=== PATIENT | female | born 1965 | race Caucasian/White ===

== ENCOUNTER → 2019-08-15 08:30 | Outpatient (BNVA) | payer BC, SELFPAY | PROVIDERS: Family Provider Family Medicine; PCP Family Medicine; Visit Provider Urology | DX: R39.15 Urgency of urination (principal); N30.20 Other chronic cystitis without hematuria; N39.3 Stress incontinence (female) (male) | CPT/HCPCS: 81001 ==

== ENCOUNTER → 2019-12-12 11:29 | Outpatient (BNVA) | payer BC, SELFPAY | PROVIDERS: Family Provider Family Medicine; PCP Nurse Practitioner Family; Visit Provider Nurse Practitioner Family | DX: N30.20 Other chronic cystitis without hematuria (principal); N39.3 Stress incontinence (female) (male) | CPT/HCPCS: 80053; 81001 ==

== ENCOUNTER 2020-07-02 07:20 | Outpatient (CLI) | payer OTHER, SELFPAY ==
--- NOTE | 2020-07-02 07:27 | MM_ITS ---
WS: [id number] BILATERAL SCREENING DIGITAL MAMMOGRAM WITH CAD HISTORY: SCREENING COMPARISON: 09/20/2018, 08/17/2017 and 10/08/2015 Bilateral CC and MLO views submitted. Computer aided detection analyzed. Breast composition: There are scattered areas of fibroglandular density. No suspicious masses, microc alcifications or architectural distortion. Asymmetries in the anterior to mid RIGHT breast have been present since 2016. MM/[id number] IMPRESSION: BI-RADS: 2-Benign FOLLOW UP: 1 Year Follow-up
== END 2020-07-02 07:21 | disposition home or self-care (01) ==
LOC: RADSHAW 07:26
PROVIDERS: PCP Nurse Practitioner Family; Visit Provider Nurse Practitioner Family
DX: Z12.31 Encounter for screening mammogram for malignant neoplasm of breast (principal)
CPT/HCPCS: 77067

== ENCOUNTER → 2024-03-10 14:33 | Outpatient (BNVA) | payer BC, SELFPAY | PROVIDERS: PCP Nurse Practitioner Family; Visit Provider Nurse Practitioner Family | DX: J06.9 Acute upper respiratory infection, unspecified (principal) | CPT/HCPCS: 87426 ==

== ENCOUNTER 2025-01-21 07:21 | Emergency (ER) | payer BC, SELFPAY ==
--- OUTSIDE RECORDS SUMMARY | 2025-01-21 07:28 | XMS_ITS | Data Portability ---
Author Organization GABRIELA Funes [facility], [place], [facility] Address [address] [facility] [address] [place] [address] Assessment Encounter Date Assessment Date Assessment LastModified by Organization Details LastModified Time 04/15/2023 04/15/2023 Patient reports her insurance does not cover mammogram or colonoscopy. Information provided regarding local programs to help pay for mammogram. She has also been directed to the [facility] for information regarding [employer] program. Patient is recorded at high risk for sleep apnea however she has tried to get a sleep study before and her insurance would not cover the testing. Currently taking EMT classes. 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 Typically follows with [facility] for her eyes. Not available 04/06/2024 12:16:37 10/05/2024 10/05/2024 Patient here today for a check-up. Overall she has been doing okay. She has been working at [employer]. She is currently going through a divorce. She will work on scheduling an eye exam. Not available 10/05/2024 10:03:10 11/29/2024 11/29/2024 Patient here today because she has been having troubles with pain in her legs and swelling/redne ss on the front area of her right lower leg. She has a lump she found in the shower in her right breast she is concerned about. She has not had a mammogram for some time. Will schedule. Not available 11/30/2024 12:56:04 01/05/2025 01/05/2025 Patient here today because she is having troubles again with possible cellulitis in her lower legs. They are both red and her left one is tender to touch. Not available 01/09/2025 14:06:12 Plan of Treatment Reminders Order Date Submit Date Provider Last Modified By Organization Details Last Modified Time Details Appointments OFFICE VISIT 2025 09:00A GENESIS [place] Not available Not available Not available Lab hemoglobi n A1C/hemog lobin total, QN, blood 2024 025 [facility], [address], [place], [address], 10/05/2024 10:56:03 CMP, serum or plasma 2024 025 [facility], [address], [place], [address], 10/05/2024 12:11:03 CBC 2024 025 [facility], [address], [place], [address], 10/05/2024 10:55:55 microalbu min/creat inine, mass ratio, urine 2024 025 [facility], [address] [facility] [address] [place], [address], 04/07/2024 15:23:10 hemoglobi n A1C/hemog lobin total, QN, blood 2024 025 [facility], [address], [place], [address], 04/06/2024 12:50:29 CMP, serum or plasma 2024 025 RAD[facility], [address], [address], [place], [address], 04/06/2024 13:13:38 lipid panel, blood 2024 025 [facility], [address], [address] , [place], [address], 04/06/2024 13:13:41 CBC 2024 025 [facility], [address], [place], [address], 04/06/2024 12:44:51 TSH, serum or plasma 2024 025 [email or web address] [facility], [address] [facility] [address], [address], [place], [address], 04/13/2024 10:33:52 microalbu min/creat inine, mass ratio, urine 2023 024 CARE[facility], [address] [place] [address], [facility] [address] [place], [address], 04/16/2023 14:06:56 HbA1c (hemoglob in A1c), blood 2023 024 [facility] ([facility]), [address] [place], [address], 04/15/2023 13:01:57 CMP, serum or plasma 2023 024 [facility], [address], [address], [place], [address], 04/15/2023 12:18:54 CBC 2023 024 [facility], [address], [address], [place], [address], 04/15/2023 11:43:08 lipid panel, blood 2023 024 RAD[facility], [address], [address], [place], [address], 04/15/2023 12:18:56 Referral vascular surgeon referral 2024 [email or web address] [facility], [address], [place], [address], 01/16/2025 11:47:27 primary care provider referral 2024 025 [email or web address] Not available 10/05/2024 16:19:35 general surgeon referral 2024 025 [email or web address] Lopez Hines MD, [address], [place], [address], 04/18/2024 16:32:12 Procedures None recorded. Surgeries None recorded. Imaging MAMMO, screening , digital, bilateral 2024 025 [facility], [address], [place], [address], 04/25/2024 09:18:13 Medication Orders cephalexi n 500 mg capsule 2024 025 [facility] [place], [facility] [place], [address], 01/19/2025 05:01:56 doxycycli ne hyclate 100 mg capsule 2024 025 [facility], [facility] [place], [address], 12/13/2024 05:01:45 glipizide 10 mg tablet 2024 025 [facility], [address] [place] [address], [address], 09/19/2024 09:32:22 metformin ER 750 mg tablet,ex tended release 24 hr 2024 025 [facility], [address] [place] [address], [address], 11/16/2024 17:40:02 pioglitaz one 15 mg tablet 2024 025 [facility], [address] [place] [address], [address], 10/12/2024 10:00:27 amoxicill in 875 mg-potass ium clavulana te 125 mg tablet [address], [address], 10/03/2024 14:24:09 atorvasta tin 10 mg tablet 2024 025 [facility], [address] [place] [address], [address], 09/19/2024 09:32:22 lisinopri l 20 mg-hydroc hlorothia zide 25 mg tablet 2024 025 [facility], [address] [place] [address], [address], 11/16/2024 17:39:59 gabapenti n 300 mg capsule 2024 025 [facility], [address] [place] [address], [address], 09/15/2024 10:26:33 Rozerem 8 mg tablet 2023 025 [facility], [address] [place] [address], [address], 04/07/2024 09:04:17 glipizide 10 mg tablet [address], [address], 11/05/2023 15:20:27 metformin ER 750 mg tablet,ex tended release 24 hr [address], [address], 11/05/2023 15:20:28 pioglitaz one 15 mg tablet [address], [address], 11/05/2023 15:20:27 lisinopri l 20 mg-hydroc hlorothia zide 25 mg tablet [address], [address], 11/05/2023 15:20:26 atorvasta tin 10 mg tablet [address], [address], 11/05/2023 15:20:25 gabapenti n 300 mg capsule [address], [address], 11/05/2023 15:20:25 Patient TargetsNo targets recorded. Patient Instructions Encounter Date Encounter Id Patient Instructions Last Modified By Organization Details Last Modified Time 04/15/2023 [id number] Call or return for questions or concerns. Not available 04/15/2023 10:30:40 04/06/2024 [id number] Call or return for questions or concerns. Not available 04/06/2024 12:10:28 10/05/2024 [id number] Call or return for questions or concerns. Not available 10/05/2024 10:05:35 11/29/2024 [id number] Call or return for questions or concerns. Not available 11/30/2024 12:56:09 01/05/2025 [id number] Call or return for questions or concerns. Not available 01/09/2025 14:06:19 Reason for Referral General Surgeon Referral for Screening for malignant neoplasm of colon Referring Physician: Cally Mcgowan [facility], Encounter Date: 04/06/2024 Primary Care Provider Referr al for Screening for malignant neoplasm of colon Referring Physician: Cally Mcgowan [facility], Encounter Date: 10/05/2024 Vascular Surgeon Referral fo r Peripheral vascular disease Referring Physician: Cally Mcgowan [facility], Encounter Date: 01/05/2025 Results Created Date Observation Date Name Description Value Unit Range Abnormal Flag Note LastModifiedBy Organization Detail LastModifiedTime 04/15/19 24 04/15/2023 CBC WBC 5.1 x10 4.0-10 .5 Not Available [facility] [address] [facility] [address], [place], [address], 04/15/2023 11:43:08 04/15/19 24 04/15/2023 CBC RBC 4.70 x10 3.50-5 .50 Not Available [facility] [address] [facility] [address], [place], [address], 04/15/2023 11:43:08 04/15/19 24 04/15/2023 CBC HGB 14.2 g/dL 12.0-1 6.0 Not Available [facility] [address] [facility] [address], [place], [address], 04/15/2023 11:43:08 04/15/19 24 04/15/2023 CBC HCT 41.6 % 37.0-4 7.0 Not Available [facility] [address] [facility] [address], [place], [address], 04/15/2023 11:43:08 04/15/19 24 04/15/2023 CBC MCV 88.5 fL 80.0-9 9.9 Not Available [facility] [address] [facility] [address], [place], [address], 04/15/2023 11:43:08 04/15/19 24 04/15/2023 CBC MCH 30.2 pg 27.0-3 2.0 Not Available [facility] [address] [facility] [address], [place], [address], 04/15/2023 11:43:08 04/15/19 24 04/15/2023 CBC MCHC 34.2 g/dL 32.0-3 6.0 Not Available [facility] [address] [facility], [place], [address], 04/15/2023 11:43:08 04/15/19 24 04/15/2023 CBC RDW 14.3 % 11.5-1 4.5 Not Available [facility] [address] [facility], [place], [address], 04/15/2023 11:43:08 04/15/19 24 04/15/2023 CBC plt 177.0 x10 140.0- 451.0 Not Available [facility] [address] [facility] [address], [place], [address], 04/15/2023 11:43:08 04/15/19 24 04/15/2023 CBC lymphocytes % 29.0 % 20.0-5 0.0 Not Available [facility] [address] [facility] [address], [place], [address], 04/15/2023 11:43:08 04/15/19 24 04/15/2023 CBC granulcytes % 52.8 % 30.0-7 0.0 Not Available [facility] [address] [address], [place], [address], 04/15/2023 11:43:08 04/15/19 24 04/15/2023 CBC monocytes % 9.6 % 2.0-10 .0 Not Available [facility] [address] [address], [place], [address], 04/15/2023 11:43:08 04/15/19 24 04/15/2023 CBC granulcytes# 2.7 x10 Not Altagracia ilable [facility] [address] [address], [place], [address], 04/15/2023 11:43:08 04/15/19 24 04/15/2023 CBC lymphocytes # 1.5 x10 Not Available [facility] [address] [address], [place], [address], 04/15/2023 11:43:08 04/15/19 24 04/15/2023 CBC monocytes # 0.5 x10 Not Avai lable [facility] [address] [address], [place], [address], 04/15/2023 11:43:08 04/15/19 24 04/15/2023 CMP (FEMA LE) glucose 121.0 mg/dL 60.0-9 9.0 high Not Available [facility] [address] [address], [place], [address], 04/15/2023 12:18:54 04/15/1904/15/2023 CMP (FEMA LE) BUN (blood urea nitrogen) 22.0 mg/dL 10.0-2 6.0 Not Available [facility] [address], [address], 04/15/2023 12:18:54 04/15/19 24 04/15/2023 CMP (FEMA LE) creatinine (serum) 0.7 mg/dL 0.4-1. 5 Not Available [facility] [address], [place], [address], 04/15/2023 12:18:54 04/15/19 24 04/15/2023 CMP (FEMA LE) BUN/creatini ne ratio 30.14 ratio Not Available [facility] [address] [facility] [address], [place], [address], 04/15/2023 12:18:54 04/15/19 24 04/15/2023 CMP (FEMA LE) eGFR calculated 87.0 Not Available [facility] [address] [address], [place], [address], 04/15/2023 12:18:54 04/15/19 24 04/15/2023 CMP (FEMA LE) total protein 7.3 g/dL 6.0-8. 5 Not Available [facility] [address] [address], [place], [address], 04/15/2023 12:18:54 04/15/19 24 04/15/2023 CMP (FEMA LE) total bilirubin 0.7 mg/dL 0.2-1. 3 Not Available [facility] [address] [address], [place], [address], 04/15/2023 12:18:54 04/15/19 24 04/15/2023 CMP (FEMA LE) albumin 4.3 g/dL 3.5-5. 5 Not Available [facility] [address], [place], [address], 04/15/2023 12:18:54 04/15/19 24 04/15/2023 CMP (FEMA LE) globulin 3.0 calc Not Available [facility] [address], [place], [address], 04/15/2023 12:18:54 04/15/19 24 04/15/2023 CMP (FEMA LE) AST (SGOT) 27.0 U/L 0.0-46 .0 Not Available [facility] [address], [place], [address], 04/15/2023 12:18:54 04/15/19 24 04/15/2023 CMP (FEMA LE) altv (SGPT) 34.0 U/L 13.0-6 9.0 normal Not Available [facility] [address], [place], [address], 04/15/2023 12:18:54 04/15/19 24 04/15/2023 CMP (FEMA LE) A/G ratio 1.4 ratio Not Available [facility] [address], [place], [address], 04/15/2023 12:18:54 04/15/19 24 04/15/2023 CMP (FEMA LE) ALP phos 82.0 U/L 30.0-1 40.0 normal Not Available [facility] [address], [place], [address], 04/15/2023 12:18:54 04/15/19 24 04/15/2023 CMP (FEMA LE) calcium 9.7 mg/dL 8.4-10 .5 Not Available [facility] [address] [address], [place], [address], 04/15/2023 12:18:54 04/15/19 24 04/15/2023 CMP (FEMA LE) sodium 141.0 mmol/ L 136.0- 145.0 Not Available [facility] [address] [address], [place], [address], 04/15/2023 12:18:54 04/15/19 24 04/15/2023 CMP (FEMA LE) potassium 4.1 mmol/ L 3.5-5. 1 Not Available [facility] [address] [facility] [address], [place], [address], 04/15/2023 12:18:54 04/15/19 24 04/15/2023 CMP (FEMA LE) chloride 103.0 mmol/ L 98.0-1 10.0 normal Not Available [facility] [address] [facility], [place], [address], 04/15/2023 12:18:54 04/15/19 24 04/15/2023 CMP (FEMA LE) C02 35.0 mmol/ L 22.0-3 1.0 high Not Available [facility] [address] [facility], [place], [address], 04/15/2023 12:18:54 04/15/19 24 04/15/2023 CMP (FEMA LE) anion gap 3.0 calc Not Available [facility] [address] [facility], [place], [address], 04/15/2023 12:18:54 04/15/19 24 04/15/2023 CMP (FEMA LE) osmolality 295.4 calc Not Available [facility] [address] [facility], [place], [address], 04/15/2023 12:18:54 04/15/19 24 04/15/2023 LIPID PROFI LE (FEMA LE) cholesterol 160.0 mg/dL 0.0-20 0.0 Not Available [facility] [address] [facility], [place], [address], 04/15/2023 12:18:56 04/15/19 24 04/15/2023 LIPID PROFI LE (FEMA LE) trig 310.0 mg/dL 0.0-15 0.0 high Not Available [facility] [address] [address], [place], [address], 04/15/2023 12:18:56 04/15/19 24 04/15/2023 LIPID PROFI LE (FEMA LE) HDL - direct 33.0 mg/dL >40.0 low Not Available [facility] [address], [place], [address], 04/15/2023 12:18:56 04/15/19 24 04/15/2023 LIPID PROFI LE (FEMA LE) VLDL - direct 62.0 mg/dL Not Available [facility] [address] [facility] [address], [place], [address], 04/15/2023 12:18:56 04/15/19 24 04/15/2023 LIPID PROFI LE (FEMA LE) LDL - direct 65.0 mg/dL 0.0-13 0.0 Not Available [facility] [address] [address], [place], [address], 04/15/2023 12:18:56 04/15/19 24 04/16/2023 ALBUM IN, RANDO M URINE W/CRE ATINI NE creatinine, random urine 111 mg/dL 20-275 normal Not Available [facility] [address] [place], [address], 04/16/2023 14:06:56 04/15/19 24 04/16/2023 ALBUM IN, RANDO M URINE W/CRE ATINI NE albumin, urine 1.8 mg/dL see note: normal Refer ence Range : Refer ence Range Not estab lishe d Not Available [facility] [address] [place], [address], 04/16/2023 14:06:56 04/15/19 24 04/16/2023 ALBUM IN, RANDO M URINE W/CRE ATINI NE albumin/crea tinine ratio, random urine 16 mcg/m g_cre at <30 normal The ADA defin es abnor malit ies in album in excre tion as follo ws: Album inuri a Categ ory Resul t (mcg/ mg creat inine ) Sofia l to Mildl y incre ased <30 Moder ately incre ased 30-29 9 Sever lisa incre ased > OR = 300 The ADA recom mends that at least two of three speci mens colle cted withi n a 3-6 month perio d be abnor mal befor e consi amparo g a patie nt to be withi n a diagn ostic categ ory. Not Available [facility] [address] [place], [address], 04/16/2023 14:06:56 04/15/19 24 04/15/2023 HbA1c (hemo globi n A1c), blood HbA1c 5.8 Not Available [facility] [address] [place], [address], 04/15/2023 10:20:24 04/06/19 25 04/06/2024 CBC WBC 3.4 x10 4.0-10 .5 low Not Available [facility] [address] [facility] [address], [address], 04/06/2024 12:44:51 04/06/19 25 04/06/2024 CBC RBC 4.35 x10 3.50-5 .50 Not Available [facility] [address] [facility] [address], [place], [address], 04/06/2024 12:44:51 04/06/19 25 04/06/2024 CBC HGB 13.4 g/dL 12.0-1 6.0 Not Available [facility] [address] [facility] [address], [address], 04/06/2024 12:44:51 04/06/19 25 04/06/2024 CBC HCT 37.8 % 37.0-4 7.0 Not Available [facility] [address] [facility] [address], [place], [address], 04/06/2024 12:44:51 04/06/19 25 04/06/2024 CBC MCV 87.0 fL 80.0-9 9.9 Not Available [facility] [address] [facility] [address], [place], [address], 04/06/2024 12:44:51 04/06/1904/06/2024 CBC MCH 30.9 pg 27.0-3 2.0 Not Available [facility] [address] [facility] [address], [place], [address], 04/06/2024 12:44:51 04/06/19 25 04/06/2024 CBC MCHC 35.6 g/dL 32.0-3 6.0 Not Available [facility] [address] [facility] [address], [place], [address], 04/06/2024 12:44:51 04/06/19 25 04/06/2024 CBC RDW 14.4 % 11.5-1 4.5 Not Available [facility] [address] [facility] [address], [place], [address], 04/06/2024 12:44:51 04/06/19 25 04/06/2024 CBC plt 154.7 x10 140.0- 451.0 Not Available [facility] [address] [facility] [address], [place], [address], 04/06/2024 12:44:51 04/06/19 25 04/06/2024 CBC lymphocytes % 26.7 % 20.0-5 0.0 Not Available [facility] [address] [facility] [address], [place], [address], 04/06/2024 12:44:51 04/06/19 25 04/06/2024 CBC granulcytes % 55.0 % 30.0-7 0.0 Not Available [facility] [address] [facility] [address], [place], [address], 04/06/2024 12:44:51 04/06/19 25 04/06/2024 CBC monocytes % 11.9 % 2.0-16 .0 Not Available [facility] [address] [facility], [place], [address], 04/06/2024 12:44:51 04/06/19 25 04/06/2024 CBC granulcytes# 1.8 x10 Not Altagracia ilable [facility] [address] [address], [place], [address], 04/06/2024 12:44:51 04/06/19 25 04/06/2024 CBC lymphocytes # 0.9 x10 Not Available [facility] [address] [facility], [place], [address], 04/06/2024 12:44:51 04/06/19 25 04/06/2024 CBC monocytes # 0.4 x10 Not Avai lable [facility] [address] [facility], [place], [address], 04/06/2024 12:44:51 04/06/19 25 04/06/2024 HBA1C hemaglobin A1C 5.9 4.2-6. 5 Not Available [facility] [address] [facility], [place], [address], 04/06/2024 12:50:29 04/06/19 25 04/06/2024 CMP (FEMA LE) glucose 121.0 mg/dL 60.0-9 9.0 high Not Available [facility] [address] [facility], [place], [address], 04/06/2024 13:13:38 04/06/19 25 04/06/2024 CMP (FEMA LE) BUN (blood urea nitrogen) 24.0 mg/dL 10.0-2 6.0 Not Available [facility] [address] [facility] [address] [address], [place], [address], 04/06/2024 13:13:38 04/06/19 25 04/06/2024 CMP (FEMA LE) creatinine (serum) 0.8 mg/dL 0.4-1. 5 Not Available [facility] [address] [facility] [address] [address], [place], [address], 04/06/2024 13:13:38 04/06/19 25 04/06/2024 CMP (FEMA LE) BUN/creatini ne ratio 30.00 ratio Not Available [facility] [address] [facility] [address] [address], [place], [address], 04/06/2024 13:13:38 04/06/19 25 04/06/2024 CMP (FEMA LE) eGFR calculated 78.0 Not Available [facility] [address] [address], [place], [address], 04/06/2024 13:13:38 04/06/19 25 04/06/2024 CMP (FEMA LE) total protein 8.2 g/dL 6.0-8. 5 Not Available [facility] [address] [address], [place], [address], 04/06/2024 13:13:38 04/06/19 25 04/06/2024 CMP (FEMA LE) total bilirubin 0.8 mg/dL 0.2-1. 3 Not Available [facility] [address] [facility] [address] [address], [place], [address], 04/06/2024 13:13:38 04/06/19 25 04/06/2024 CMP (FEMA LE) albumin 4.6 g/dL 3.5-5. 5 Not Available [facility] [address] [facility], [place], [address], 04/06/2024 13:13:38 04/06/19 25 04/06/2024 CMP (FEMA LE) globulin 3.6 calc Not Available [facility] [address], [place], [address], 04/06/2024 13:13:38 04/06/19 25 04/06/2024 CMP (FEMA LE) AST (SGOT) 27.0 U/L 0.0-46 .0 Not Available [facility] [address], [place], [address], 04/06/2024 13:13:38 04/06/19 25 04/06/2024 CMP (FEMA LE) altv (SGPT) 31.0 U/L 13.0-6 9.0 normal Not Available [facility] [address] [facility], [place], [address], 04/06/2024 13:13:38 04/06/19 25 04/06/2024 CMP (FEMA LE) A/G ratio 1.3 ratio Not Available [facility] [address], [place], [address], 04/06/2024 13:13:38 04/06/19 25 04/06/2024 CMP (FEMA LE) ALP phos 87.0 U/L 30.0-1 40.0 normal Not Available [facility] [address] [facility], [place], [address], 04/06/2024 13:13:38 04/06/19 25 04/06/2024 CMP (FEMA LE) calcium 9.7 mg/dL 8.4-10 .5 Not Available [facility] [address] [facility] [address], [place], [address], 04/06/2024 13:13:38 04/06/19 25 04/06/2024 CMP (FEMA LE) sodium 137.0 mmol/ L 136.0- 145.0 Not Available [facility] [address] [facility] [address], [place], [address], 04/06/2024 13:13:38 04/06/19 25 04/06/2024 CMP (FEMA LE) potassium 3.9 mmol/ L 3.5-5. 1 Not Available [facility] [address] [address], [place], [address], 04/06/2024 13:13:38 04/06/19 25 04/06/2024 CMP (FEMA LE) chloride 103.0 mmol/ L 98.0-1 10.0 normal Not Available [facility] [address] [facility] [address], [place], [address], 04/06/2024 13:13:38 04/06/19 25 04/06/2024 CMP (FEMA LE) C02 32.0 mmol/ L 22.0-3 1.0 high Not Available [facility] [address] [address], [place], [address], 04/06/2024 13:13:38 04/06/19 25 04/06/2024 CMP (FEMA LE) anion gap 2.0 calc Not Available [facility] [address] [address], [place], [address], 04/06/2024 13:13:38 04/06/19 25 04/06/2024 CMP (FEMA LE) osmolality 288.1 calc Not Available [facility] [address], [place], [address], 04/06/2024 13:13:38 04/06/19 25 04/06/2024 LIPID PROFI LE (FEMA LE) cholesterol 177.0 mg/dL 0.0-20 0.0 Not Available [facility] [address] [facility] [address], [place], [address], 04/06/2024 13:13:41 04/06/19 25 04/06/2024 LIPID PROFI LE (FEMA LE) trig 374.0 mg/dL 0.0-15 0.0 high Not Available [facility] [address] [facility] [address], [place], [address], 04/06/2024 13:13:41 04/06/19 25 04/06/2024 LIPID PROFI LE (FEMA LE) HDL - direct 39.0 mg/dL >40.0 low Not Available [facility] [address] [facility] 1, [place], [address], 04/06/2024 13:13:41 04/06/19 25 04/06/2024 LIPID PROFI LE (FEMA LE) VLDL - direct 74.8 mg/dL Not Available [facility] [address] [address], [place], [address], 04/06/2024 13:13:41 04/06/19 25 04/06/2024 LIPID PROFI LE (FEMA LE) LDL - direct 63.2 mg/dL 0.0-13 0.0 Not Available [facility] [address] [address], [place], [address], 04/06/2024 13:13:41 04/06/19 25 04/06/2024 TSH TSH 1.69 uIU/m L 0.49-3 .82 normal Not Available [facility] [address] [address], [place], [address], 04/06/2024 13:23:01 04/06/19 25 04/07/2024 ALBUM IN, RANDO M URINE W/CRE ATINI NE creatinine, random urine 55 mg/dL 20-275 normal Not Available [facility] [address] [place], [address], 04/07/2024 15:23:10 04/06/19 25 04/07/2024 ALBUM IN, RANDO M URINE W/CRE ATINI NE albumin, urine 0.8 mg/dL see note: normal Refer ence Range : Refer ence Range Not estab lishe d Not Available [address] [address] [address], [place], [address], 04/07/2024 15:23:10 04/06/19 25 04/07/2024 ALBUM IN, RANDO M URINE W/CRE ATINI NE albumin/crea tinine ratio, random urine 15 mg/g_ creat <30 normal The ADA defin es abnor malit ies in album in excre tion as follo ws: Album inuri a Categ ory Resul t (mg/g creat inine ) Sofia l to Mildl y incre ased <30 Moder ately incre ased 30-29 9 Sever lisa incre ased > OR = 300 The ADA recom mends that at least two of three speci mens colle cted withi n a 3-6 month perio d be abnor mal befor e consi amparo g a patie nt to be withi n a diagn ostic categ ory. Not Available [facility] [address] [place], [address], 04/07/2024 15:23:10 10/06/19 25 10/05/2024 CBC WBC 5.3 x10 4.0-10 .5 Not Available [facility] [address], [place], [address], 10/05/2024 10:55:54 10/06/19 25 10/05/2024 CBC RBC 4.78 x10 3.50-5 .50 Not Available [facility] [address] [facility] 1, [place], [address], 10/05/2024 10:55:54 10/06/19 25 10/05/2024 CBC HGB 14.3 g/dL 12.0-1 6.0 Not Available [facility] [address] [facility] 1, [place], [address], 10/05/2024 10:55:54 10/06/19 25 10/05/2024 CBC HCT 43.0 % 37.0-4 7.0 Not Available [facility] [address] [facility] 1, [place], [address], 10/05/2024 10:55:54 10/06/19 25 10/05/2024 CBC MCV 90.0 fL 80.0-9 9.9 Not Available [facility] [address] [facility] 1, [place], [address], 10/05/2024 10:55:54 10/06/19 25 10/05/2024 CBC MCH 29.8 pg 27.0-3 2.0 Not Available [facility] [address] [facility] 1, [place], [address], 10/05/2024 10:55:54 10/06/19 25 10/05/2024 CBC MCHC 33.2 g/dL 32.0-3 6.0 Not Available [facility] [address] [facility] 1, [place], [address], 10/05/2024 10:55:54 10/06/19 25 10/05/2024 CBC RDW 14.0 % 11.5-1 4.5 Not Available [facility] [address] [facility] 1, [place], [address], 10/05/2024 10:55:54 10/06/19 25 10/05/2024 CBC plt 169.7 x10 140.0- 451.0 Not Available [facility] [address] [facility] 1, [place], [address], 10/05/2024 10:55:54 10/06/19 25 10/05/2024 CBC lymphocytes % 25.7 % 20.0-5 0.0 Not Available [facility] [address] [facility] 1, [place], [address], 10/05/2024 10:55:54 10/06/19 25 10/05/2024 CBC granulcytes % 61.0 % 30.0-7 0.0 Not Available [facility] [address] [facility] 1, [place], [address], 10/05/2024 10:55:54 10/06/19 25 10/05/2024 CBC monocytes % 8.9 % 2.0-16 .0 Not Available [facility] [address] [facility], [place], [address], 10/05/2024 10:55:54 10/06/19 25 10/05/2024 CBC granulcytes# 3.3 x10 Not Altagracia ilable [facility] [address] [facility], [place], [address], 10/05/2024 10:55:54 10/06/19 25 10/05/2024 CBC lymphocytes # 1.4 x10 Not Available [facility] [address] [facility], [place], [address], 10/05/2024 10:55:54 10/06/19 25 10/05/2024 CBC monocytes # 0.5 x10 Not Avai lable [facility] [address] [facility], [place], [address], 10/05/2024 10:55:54 10/06/19 25 10/05/2024 HBA1C hemaglobin A1C 6.1 4.2-6. 5 Not Available [facility] [address] [facility], [place], [address], 10/05/2024 10:56:02 10/06/19 25 10/05/2024 CMP (FEMA LE) glucose 120.0 mg/dL 60.0-9 9.0 high Not Available [facility] [address] [facility] 1, [place], [address], 10/05/2024 12:11:03 10/06/19 25 10/05/2024 CMP (FEMA LE) BUN (blood urea nitrogen) 21.0 mg/dL 10.0-2 6.0 Not Available [facility] [address] [address], [place], [address], 10/05/2024 12:11:03 10/06/19 25 10/05/2024 CMP (FEMA LE) creatinine (serum) 0.8 mg/dL 0.4-1. 5 Not Available [facility] [address] [address], [place], [address], 10/05/2024 12:11:03 10/06/19 25 10/05/2024 CMP (FEMA LE) BUN/creatini ne ratio 26.25 ratio Not Available [facility] [address] [address], [place], [address], 10/05/2024 12:11:03 10/06/19 25 10/05/2024 CMP (FEMA LE) eGFR calculated 78.0 Not Available [facility] [address] [address], [place], [address], 10/05/2024 12:11:03 10/06/19 25 10/05/2024 CMP (FEMA LE) total protein 7.6 g/dL 6.0-8. 5 Not Available [facility] [address] [facility] 1, [place], [address], 10/05/2024 12:11:03 10/06/19 25 10/05/2024 CMP (FEMA LE) total bilirubin 0.7 mg/dL 0.2-1. 3 Not Available [facility] [facility] 1, [place], [address], 10/05/2024 12:11:03 10/06/19 25 10/05/2024 CMP (FEMA LE) albumin 4.5 g/dL 3.5-5. 5 Not Available [facility] [address] [facility] Fab[facility] 1, [place], [address], 10/05/2024 12:11:03 10/06/19 25 10/05/2024 CMP (FEMA LE) globulin 3.1 calc Not Available [facility] [address] [facility] Fabienne [facility] 1, [place], [address], 10/05/2024 12:11:03 10/06/19 25 10/05/2024 CMP (FEMA LE) AST (SGOT) 34.0 U/L 0.0-46 .0 Not Available [facility] [address] [facility], [place], [address], 10/05/2024 12:11:03 10/06/19 25 10/05/2024 CMP (FEMA LE) altv (SGPT) 37.0 U/L 13.0-6 9.0 normal Not Available [facility] [address] [facility] 1, [place], [address], 10/05/2024 12:11:03 10/06/19 25 10/05/2024 CMP (FEMA LE) A/G ratio 1.5 ratio Not Available [facility] [address], [place], [address], 10/05/2024 12:11:03 10/06/19 25 10/05/2024 CMP (FEMA LE) ALP phos 79.0 U/L 30.0-1 40.0 normal Not Available [facility] [address], [place], [address], 10/05/2024 12:11:03 10/06/19 25 10/05/2024 CMP (FEMA LE) calcium 10.2 mg/dL 8.4-10 .5 Not Available [facility] [address], [place], [address], 10/05/2024 12:11:03 10/06/19 25 10/05/2024 CMP (FEMA LE) sodium 141.0 mmol/ L 136.0- 145.0 Not Available [facility] [address], [place], [address], 10/05/2024 12:11:03 10/06/19 25 10/05/2024 CMP (FEMA LE) potassium 3.9 mmol/ L 3.5-5. 1 Not Available [facility] [address], [place], [address], 10/05/2024 12:11:03 10/06/19 25 10/05/2024 CMP (FEMA LE) chloride 102.0 mmol/ L 98.0-1 10.0 normal Not Available [facility] [address], [place], [address], 10/05/2024 12:11:03 10/06/19 25 10/05/2024 CMP (FEMA LE) C02 30.0 mmol/ L 22.0-3 1.0 Not Available [facility] [address] [facility] 1, [place], [address], 10/05/2024 12:11:03 10/06/19 25 10/05/2024 CMP (FEMA LE) anion gap 9.0 calc Not Available [facility] [address], [place], [address], 10/05/2024 12:11:03 10/06/19 25 10/05/2024 CMP (FEMA LE) osmolality 295.0 calc Not Available [facility] [address], [place], [address], 10/05/2024 12:11:03 01/13/20 25 01/12/2025 CBC WBC 3.9 x10 4.0-10 .5 low Not Available [facility] [address] [facility] 1, [place], [address], 01/12/2025 14:05:20 01/13/20 25 01/12/2025 CBC RBC 4.75 x10 3.50-5 .50 Not Available [facility] [address] [facility] 1, [place], [address], 01/12/2025 14:05:20 01/13/20 25 01/12/2025 CBC HGB 14.4 g/dL 12.0-1 6.0 Not Available [facility] [address] [facility] 1, [place], [address], 01/12/2025 14:05:20 01/13/20 25 01/12/2025 CBC HCT 42.8 % 37.0-4 7.0 Not Available [facility] [address] [facility] 1, [place], [address], 01/12/2025 14:05:20 01/13/20 25 01/12/2025 CBC MCV 90.2 fL 80.0-9 9.9 Not Available [facility] [address] [facility] 1, [place], [address], 01/12/2025 14:05:20 01/13/20 25 01/12/2025 CBC MCH 30.3 pg 27.0-3 2.0 Not Available [facility] [address] [facility] 1, [place], [address], 01/12/2025 14:05:20 01/13/20 25 01/12/2025 CBC MCHC 33.6 g/dL 32.0-3 6.0 Not Available [facility] [address] [facility] 1, [place], [address], 01/12/2025 14:05:20 01/13/20 25 01/12/2025 CBC RDW 13.8 % 11.5-1 4.5 Not Available [facility] [address] [facility], [place], [address], 01/12/2025 14:05:20 01/13/20 25 01/12/2025 CBC plt 179.2 x10 140.0- 451.0 Not Available [facility] [address] [facility] 1, [place], [address], 01/12/2025 14:05:20 01/13/20 25 01/12/2025 CBC lymphocytes % 26.6 % 20.0-5 0.0 Not Available [facility] [address] [facility] 1, [place], [address], 01/12/2025 14:05:20 01/13/20 25 01/12/2025 CBC granulcytes % 56.2 % 30.0-7 0.0 Not Available [facility] [address] [facility] 1, [place], [address], 01/12/2025 14:05:20 01/13/20 25 01/12/2025 CBC monocytes % 11.9 % 2.0-16 .0 Not Available [facility] [address], [place], [address], 01/12/2025 14:05:20 01/13/20 25 01/12/2025 CBC granulcytes# 2.2 x10 Not Altagracia ilable [facility] [address], [place], [address], 01/12/2025 14:05:20 01/13/20 25 01/12/2025 CBC lymphocytes # 1.0 x10 Not Available [facility] [address], [place], [address], 01/12/2025 14:05:20 01/13/20 25 01/12/2025 CBC monocytes # 0.5 x10 Not Avai lable [facility] [address], [place], [address], 01/12/2025 14:05:20 01/13/20 25 01/12/2025 CMP (FEMA LE) glucose 120.0 mg/dL 60.0-9 9.0 high Not Available [facility] [address], [place], [address], 01/12/2025 15:04:40 01/13/20 25 01/12/2025 CMP (FEMA LE) BUN (blood urea nitrogen) 29.0 mg/dL 10.0-2 6.0 high Not Available [facility] [address], [place], [address], 01/12/2025 15:04:40 01/13/20 25 01/12/2025 CMP (FEMA LE) creatinine (serum) 1.4 mg/dL 0.4-1. 5 Not Available [facility] [address], [place], [address], 01/12/2025 15:04:40 01/13/20 25 01/12/2025 CMP (FEMA LE) BUN/creatini ne ratio 20.71 ratio Not Available [facility] [address] [facility] 1, [place], [address], 01/12/2025 15:04:40 01/13/20 25 01/12/2025 CMP (FEMA LE) eGFR calculated 40.8 Not Available [facility] [address] [facility] 1, [place], [address], 01/12/2025 15:04:40 01/13/20 25 01/12/2025 CMP (FEMA LE) total protein 7.7 g/dL 6.0-8. 5 Not Available [facility] [address] [address], [place], [address], 01/12/2025 15:04:40 01/13/20 25 01/12/2025 CMP (FEMA LE) total bilirubin 0.8 mg/dL 0.2-1. 3 Not Available [facility] [address] [facility] 1, [place], [address], 01/12/2025 15:04:40 01/13/20 25 01/12/2025 CMP (FEMA LE) albumin 4.2 g/dL 3.5-5. 5 Not Available [facility] [address] [facility] 1, [place], [address], 01/12/2025 15:04:40 01/13/20 25 01/12/2025 CMP (FEMA LE) globulin 3.5 calc Not Available [facility] [address] [facility] 1, [place], [address], 01/12/2025 15:04:40 01/13/20 25 01/12/2025 CMP (FEMA LE) AST (SGOT) 28.0 U/L 0.0-46 .0 Not Available [facility] [address] [facility] 1, [place], [address], 01/12/2025 15:04:40 01/13/20 25 01/12/2025 CMP (FEMA LE) altv (SGPT) 32.0 U/L 13.0-6 9.0 normal Not Available [facility] [address] [facility] 1, [place], [address], 01/12/2025 15:04:40 01/13/20 25 01/12/2025 CMP (FEMA LE) A/G ratio 1.2 ratio Not Available [facility] [address] [facility] 1, [place], [address], 01/12/2025 15:04:40 01/13/20 25 01/12/2025 CMP (FEMA LE) ALP phos 69.0 U/L 30.0-1 40.0 normal Not Available [facility] [address] [facility] 1, [place], [address], 01/12/2025 15:04:40 01/13/20 25 01/12/2025 CMP (FEMA LE) calcium 9.2 mg/dL 8.4-10 .5 Not Available [facility] [address], [place], [address], 01/12/2025 15:04:40 01/13/20 25 01/12/2025 CMP (FEMA LE) sodium 141.0 mmol/ L 136.0- 145.0 Not Available [facility] [address] [facility], [place], [address], 01/12/2025 15:04:40 01/13/20 25 01/12/2025 CMP (FEMA LE) potassium 4.0 mmol/ L 3.5-5. 1 Not Available [facility] [address] [facility], [place], [address], 01/12/2025 15:04:40 01/13/20 25 01/12/2025 CMP (FEMA LE) chloride 102.0 mmol/ L 98.0-1 10.0 normal Not Available [facility] [address], [place], [address], 01/12/2025 15:04:40 01/13/20 25 01/12/2025 CMP (FEMA LE) C02 30.0 mmol/ L 22.0-3 1.0 Not Available [facility] [address] [address], [place], [address], 01/12/2025 15:04:40 01/13/20 25 01/12/2025 CMP (FEMA LE) anion gap 9.0 calc Not Available [facility] [address] [address], [place], [address], 01/12/2025 15:04:40 01/13/20 25 01/12/2025 CMP (FEMA LE) osmolality 297.7 calc Not Available [facility] [address] [address], [place], [address], 01/12/2025 15:04:40 01/13/20 25 01/13/2025 C-LEATHA CTIVE PROTE IN C-reactive protein <3.0 mg/L <8.0 normal Not Available [facility] [address] [place], [address], 01/13/2025 08:07:06 01/19/20 25 01/18/2025 ESR (eryt hrocy te sedim entat ion rate) , blood SedRate 30 Not Available [facility] [address] [place], [address], 01/12/2025 12:47:06 Result Notes None recorded. Problems Name Problem SNOMED Code Status Onset Date Resolution Date Notes Provider Name and Address Organization Details Recorded Time Type 2 diabetes mellitus [id number] Active 025 [email or web address] 11:45:23 Problem Notes None recorded. Procedures Surgical History Date Name Laterality Status Provider Name and Address Organization Details Recorded Time 03/16/19 total hysterectomy completed CALLY MCGOWAN, [facility] [address] [place], [address], [facility] 04/06/2024 12:11:57 Imaging Results None recorded. Procedure Notes None recorded. Medical Equipment None Reported. Allergies No known drug allergies Medications Name Sig Start Date Stop Date Status Note LastModified by Organization Details LastModified Time celecoxib 200 mg capsule take 1 capsule BY MOUTH TWICE DAILY active Not Available Not Available No t Available amoxicill in 500 mg capsule TAKE 2 CAPSULES BY MOUTH TWICE DAILY FOR 7 DAYS 04/15 completed Not Available Not Available Not Available pioglitaz one 15 mg tablet TAKE 1 TABLET BY MOUTH EVERY DAY active Not Available Not Available No t Available doxycycli ne hyclate 100 mg capsule Take 1 capsule twice a day by oral route for 7 days. 12/13 completed Not Available Not Available Not Available atorvasta tin 10 mg tablet TAKE 1 TABLET BY MOUTH EVERY DAY active Not Available Not Available No t Available fluconazo le 150 mg tablet TAKE 1 TABLET BY MOUTH FOR ONE DOSE and MAY REPEAT in SEVEN DAYS if needed 04/15 completed Not Available Not Available Not Available glipizide 10 mg tablet TAKE 1 TABLET BY MOUTH TWICE DAILY active Not Available Not Available No t Available prednison e 20 mg tablet TAKE 1 TABLET BY MOUTH DAILY active Not Available Not Available No t Available benzonata te 100 mg capsule take 1 capsule BY MOUTH THREE TIMES DAILY NEEDED FOR cough 04/06 completed Not Available Not Available Not Available cephalexi n 500 mg capsule Take 1 capsule 3 times a day by oral route for 7 days. 01/19 completed Not Available Not Available Not Available oseltamiv ir 75 mg capsule take 1 capsule BY MOUTH TWICE DAILY for 5 days active Not Available Not Available No t Available neomycin- polymyxin -dexameth 3.5 mg/mL-10, 000 unit/mL-0 .1% eye drops instill 5 drops IN AFFECTED EAR THREE TIMES DAILY for 10 days 04/15 completed Not Available Not Available Not Available gabapenti n 300 mg capsule take 1 capsule BY MOUTH TWICE DAILY active Not Available Not Available No t Available lisinopri l 20 mg-hydroc hlorothia zide 25 mg tablet TAKE 1 TABLET BY MOUTH EVERY DAY IN THE MORNING active Not Available Not Available No t Available magnesium 250 mg tablet active Not Available Not Available Not Available potassium in vitro test active Not Available Not Available Not Available doxycycli ne hyclate 100 mg tablet TAKE 1 TABLET BY MOUTH TWICE DAILY FOR 10 DAYS FOR cellulit is active Not Available Not Available No t Available amoxicill in 875 mg-potass ium clavulana te 125 mg tablet TAKE 1 TABLET BY MOUTH EVERY TWELVE HOURS for 10 days 10/03 completed Not Available Not Available Not Available Adult Low Dose Aspirin 81 mg tablet active Not Available Not Available Not Available metformin ER 750 mg tablet,ex tended release 24 hr TAKE 1 TABLET BY MOUTH TWICE DAILY active Not Available Not Available No t Available nitrofura ntoin monohydra te/macroc rystals 100 mg capsule take 1 capsule BY MOUTH TWICE DAILY 04/15 completed Not Available Not Available Not Available ramelteon 8 mg tablet TAKE 1 TABLET BY MOUTH EVERY DAY AT BEDTIME 04/06 completed Not Available Not Available Not Available atorvasta tin at bedtime 04/15 completed Recorded 10/31/19 22 1:37PM by Marla Wilburn CMT, Historic al Summary; Refill Quantity : 90; Tablet; Not Available Not Available Not Available lisinopri l-hydroch lorothiaz gisselle every morning 04/15 completed [id number]; Recorded 02/01/20 22 11:34AM by Marla Wilburn CMT (Earnest holliday through GENES[facility] Melendez), Refill Request; Refill Quantity : 90; Tablet; Not Available Not Available Not Available glipizide two times daily 04/15 completed Recorded 10/31/19 22 1:37PM by Marla Wilburn CMT, Historic al Summary; Refill Quantity : 180; Tablet; Not Available Not Available Not Available metformin two times daily 04/15 completed 173; Recorded 02/01/20 11:34AM by Marla Wilburn CMT (Authori mg through Samm Kapadia MD), Refill Request; Refill Quantity : 180; Tablet; Not Available Not Available Not Available pioglitaz one daily 04/15 completed Recorded 10/31/19 1:36PM by Marla Wilburn CMT, Historic al Summary; Refill Quantity : 90; Tablet; Not Available Not Available Not Available Glucose Test Strips check CBG four times daily 04/15 completed E11.65 Needs strips compatib le with glucomet er LBarr/RUBY beauchamp ; Recorded 08/31/19 10:38AM by Suzan Munoz RN, Office Visit; Refill Quantity : 1; Containe r; Not Available Not Available Not Available Sarah 0.05 mg/24 hr transderm al patch apply ONE PATCH topicall y FOR THREE DAYS, THEN REMOVE and apply a new PATCH and LEAVE ON FOR FOUR DAYS and REPEAT weekly active Not Available Not Available No t Available Vitals Date Recorded Body height Body mass index (BMI) Body weight Oxygen saturation Oxygen saturation in Arterial blood by Pulse oximetry Heart rate Respiratory rate Systolic And Diastolic Provider Name and Address Organization Details Last Updated DateTime 5 172.72 cm 38.2 kg/m2 370021. 68 g 97 % 97 % 84 /min 22 /min 144/80 mm[Hg] MARLA WILBURN [facility] 5 11:51:26 Date Recorded Body height Body mass index (BMI) Body weight Oxygen saturation Oxygen saturation in Arterial blood by Pulse oximetry Heart rate Body temperature Systolic And Diastolic Provider Name and Address Organization Details Last Updated DateTime 4 172.72 cm 39.2 kg/m2 672680. 83 g 96 % 96 % 88 /min 98.2 [degF] 118/74 mm[Hg] COSMO LORENZO [facility] 4 10:02:38 Date Recorded Body height Body mass index (BMI) Body weight Oxygen saturation Oxygen saturation in Arterial blood by Pulse oximetry Heart rate Respiratory rate Systolic And Diastolic Provider Name and Address Organization Details Last Updated DateTime 5 172.72 cm 40 kg/m2 654738. 79 g 96 % 96 % 80 /min 20 /min 110/74 mm[Hg] MARLA [facility] 5 09:36:19 Date Recorded Body height Body mass index (BMI) Body weight Oxygen saturation Oxygen saturation in Arterial blood by Pulse oximetry Heart rate Respiratory rate Systolic And Diastolic Provider Name and Address Organization Details Last Updated DateTime 5 172.72 cm 40 kg/m2 834146. 79 g 98 % 98 % 92 /min 20 /min 126/80 mm[Hg] MARLA [facility] 5 14:30:26 Date Recorded Body height Body mass index (BMI) Body weight Oxygen saturation Oxygen saturation in Arterial blood by Pulse oximetry Systolic And Diastolic Provider Name and Address Organization Details Last Updated DateTime 5 172.72 cm 40.9 kg/m2 029396. 35 g 97.8 % 97.8 % 138/80 mm[Hg] MARLA [facility] 5 15:20:05 Social History Question Answer Notes LastModified by [employer] Details LastModified Time Tobacco Smoking Status Never Smoker CALLY MCGOWAN, [address], [address], [facility] 04/06/2024 12:14:44 What Is Your Level Of Caffeine Consumption? 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 04/06/2024 Information not available 04/06/2024 What Is Your Relationship Status? [email or web address] Information not available 10/05/2024 Sex: Unknown Functional Status Question Answer Note LastModified by [employer] Details LastModified Time Do you use any illicit or recreational drugs? No Information not available 10/05/2024 Do you or have you ever used any other forms of tobacco or nicotine? No Information not available 04/06/2024 What is your level of alcohol consumption? Occasional Information not available 10/05/2024 Are you currently employed? Yes [email or web address] Information not available 10/05/2024 Are you able to walk independently without assistance or assistive devices? YESWOREST [email or web address] Information not available 10/05/2024 Are you able to care for yourself independently? Yes Information not available 10/05/2024 Do you or have you ever used any nicotine-free cigarettes, vape, or chewing tobacco? No Information not available 04/06/2024 Mental Status None recorded. Family History Relationship Description Onset Age of this Age Resolved Age Notes LastModified by Organization Details LastModified Time Mother Malignant neoplasm of colon 50 Not available 2024 12:13:37 Sister Malignant neoplasm of breast 52 Not available 2024 12:13:56 Father Malignant neoplasm of stomach Not available 2024 12:14:29 Medical History Condition Response Diabetes Y Hypertension Y High Cholesterol Y Gynecological HistoryNo gynecological history recorded. Obstetrics History GPAL:G 0 P 0 0 0 0 Immunizations Vaccine Type Date Status Note Provider Nam e and Address Organization Details Recorded Time HepB-CpG 4 completed CALLY MCGOWAN, [facility] [address] [place], [address], [facility] 04/06/2024 12:15:14 HepB-CpG 3 completed CALLY MCGOWAN, [facility] [address] [place], [address], [facility] 04/06/2024 12:15:15 Tdap 3 lucia MCGOWAN, [facility] [address] [place], [address], [facility] 04/06/2024 12:15:15 Influenza, split virus, trivalent, preservative 3 completed GENESIS HANKINS [address] [place], [address], [facility] 04/06/2024 12:15:15 Influenza, split virus, trivalent, PF 7 completed GENESIS HANKINS [address] [place], [address], [facility] 04/06/2024 12:15:15 Influenza, MDCK, quadrivalent, PF 9 completed Not Available [facility] 10/11/2022 02:25:02 Tdap 9 completed Not Available [facility] 10/11/2022 02:25:02 Influenza, split virus, trivalent, preservative 6 completed Not Available [facility] 10/11/2022 02:25:02 Influenza, split virus, trivalent, PF 7 completed Not Available [facility] 10/11/2022 02:25:02 Past Encounters Encounter ID Performer Location Encounter Start Date Encounter Closed Date Diagnosis/Indication Diagnosis SNOMED-CT Code Diagnosis ICD10 Code Diagnosis IMO Codes Diagnosis Note [id number] GENESIS HANKINS [facility] ([facility]) [address] [place] [address] 04/15/2023 09:28:39 04/15/2023 10:56:08 Hyperlipidemia 43309309 E78.5 Neuropathy due to diabetes mellitus 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 Continue magnesium and MVI. Insomnia 386590242 G47.0 0 [id number] GENESIS HANKINS [facility] ([facility]) [address] [place] [address] 04/06/2024 11:29:16 04/06/2024 12:19:14 Essential hypertension 87045558 I10 Hyperlipidemia 15541101 E78.5 Neuropathy due to diabetes mellitus 828983611 E11.40 Type 2 cruz betes mellitus 60273979 E11.65 Acute sinusitis 36831667 J01.90 Screening mammography 24 403005 Z12.31 Screening for malignant neoplasm of colon 869752301 Z12.11 [id number] GENESIS HANKINS [facility] ([facility]) [address] [place] [address] 10/05/2024 09:10:38 10/05/2024 10:29:32 Type 2 diabetes mellitus 44335328 E11.65 Essential hypertension 12313185 I10 27167 Blood pressure good. Continue current medication s. Screening for malignant neoplasm of colon 939169399 Z12.11 784902 Pain of joint 37121007 M 25.50 [id number] She has been taking pro and pre vitalize. Right uppe r quadrant pain 488288603 R10.11 078175 Discussed ultrasound . Will hold off for now but will let us know if she changes her mind. Avoid fatty/grea sy foods. Feels like she has a spasming pain in RUQ at times. [id number] GENESIS HANKINS [facility] ([facility]) [address] [place] [address] 11/29/2024 14:01:11 12/05/2024 12:47:55 Screening mammography 35695468 Z12.31 3183396 Lump in lo wer outer quadrant of right breast [id number] 65503 N63.13 [id number] Cellulitis of lower leg 262666883 L03.115 L03.116 27350775 [id number] GENESIS HANKINS [facility] ([facility]) [address] [place] [address] 01/05/2025 15:04:11 01/09/2025 15:02:01 Peripheral vascular disease 873899584 I73.9 57135 Cellulitis of lower leg 816827513 L03.116 L03.630 [id number] Health Concerns Section Related Observation LastModified by Organization Detai ls LastModified Time None Recorded Concern Status LastModified by Organization Details LastModified Time None Recorded Advance Directives Directive None Recorded Payers Insurance Date Sequence Insurance Name Policy Number Policy Logan Covered Member ID Logan Member ID Guarantor Name 04/06/2024 1 [employer] (INDEMNITY) [id number] [id number] Muriel Moser 01/12/2025 1 [place] [id number] Muriel Gross [id number] Muriel Moser Notes Date Note Type Note Provider Name and Address Organization Details Recorded Time 04/15/19 24 text/htm l DiabetesReported by PatientHPIFor compliance, patient reportsnoncompliant with home glucose monitoringbut reportscompliant with medications,compliant with follow-up visits, andcompliant with diet. For control, patient reportsusually well controlled. Hypertension IM/FMReported by PatientHPIFor associated symptoms, patient reportspalpitationsbut reportsno chest pain. For quality, patient reportshere for check-up. For severity, patient reportsnormal (<120/<80 mmhg).ROS as noted in the [facility] CALLY MCGOWAN, [address], [address], [facility] 04/15/2023 10:31:33 04/06/19 25 text/htm l DiabetesReported by PatientHPIFor compliance, patient reportsnoncompliant with followup-visits,noncompliant with diet, andnoncompliant with home glucose monitoringbut reportscompliant with medications. For duration, patient reportschronic. For control, patient reportstreated with diet and oral medications.Complications and Co-morbiditiesFor chronic complications, patient reportshypertension: yes. Hypertension IM/FMReported by PatientHPIFor quality, patient reportshere for check-up. For duration, patient reportshtn present for ___ years. For alleviating factors, patient reportsmedication. For self care, patient reportsnon-smoker. For associated symptoms, patient reportsno shortness of breathandno chest pain.ROS as noted in the [facility] CALLY MCGOWAN, [facility] [address] [place] [address], [address], [facility] 04/06/2024 12:19:00 10/06/19 25 text/htm l DiabetesReported by PatientHPIFor compliance, patient reportsnoncompliant with dietandnoncompliant with home glucose monitoringbut reportscompliant with medications. For duration, patient reportschronic. For control, patient reportstreated with diet and oral medicationsandhemoglobin a1c has been less than 7. For self care, patient reportsmonitoring glucose weekly.Complications and Co-morbiditiesFor chronic complications, patient reportshypertension: yesandhyperlipidemia: yes. Hypertension IM/FMReported by PatientHPIFor quality, patient reportshere for check-up. For duration, patient reportshtn present for ___ years. For alleviating factors, patient reportsmedication. For self care, patient reportsnon-smoker. For associated symptoms, patient reportsno shortness of breathandno chest pain.ROS as noted in the HPI CALLY MCGOWAN [facility] [address] [place], [address], [facility] 10/05/2024 10:08:28 11/30/19 25 text/htm l General Rash/Skin LesionReported by PatientHPIFor quality, patient reportspainful,red, andtenderness. For aggravating factors, patient reportsclothing. For location, patient reportslegs. For severity, patient reportsmoderateandworsening. For duration, patient reportshas noted for 3-4 weeks. For associated symptoms, patient reportsno fever. Breast MassReported by PatientHPIFor location, patient reportsright. For onset/timing, patient reports1-4 months. For severity, patient reportsmild. For duration, patient reportsconstant. CALLY MCGOWAN [facility] [address] [place], [address], [facility] 2024 10:39:14 01/06/20 25 text/htm l General Rash/Skin LesionReported by PatientHPIFor quality, patient reportspainfulandred. For location, patient reportslegs. For severity, patient reportsmoderateandworsening. For duration, patient reportshas noted for <1 week. For associated symptoms, patient reportsno fever. CALLY MCGOWAN, [facility] [place], [address], [facility], [place] 01/09/2025 14:24:14 OBGyn Episode No OBEpisode recorded.
[2025-01-21 07:31] VITALS: BP 177/85; PULSE 85; RESP 18; TEMP 36.7; O2SAT 98; BMI 43.6
--- NOTE | 2025-01-21 07:40 | USR_ITS ---
PROCEDURE INFORMATION: Exam: US Left Limited Joint or Other Non-Vascular Extremity Structure Exam date and time: 01/21/2025 8:22 AM Age: 59 years old Clinical indication: Pain; Lower leg; Left; Additional info: Focal area pain/swelling lle, R/O abscess, multiple rounds abx no improvement TECHNIQUE: Imaging protocol: US left limited joint or other nonvascular extremity structure. Real-time ultrasound with image documentation. Exam focused on the area of clinical interest. COMPARISON: [place] [id number] 01/21/2025 8:15 AM FINDINGS: Soft tissues: Subcutaneous soft tissue edema along with heterogeneous echotexture of the visualized soft tissues in the left lower extremity of the area of redness/pain. No loculated collections. US/US soft tissue/extremity [id number] IMPRESSION: Findings suggestive of edema with possible cellulitis. No loculated collections to suggest abscess.
--- NOTE | 2025-01-21 07:40 | USR_ITS ---
PROCEDURE INFORMATION: Exam: US Duplex Left Lower Extremity Veins, Limited Exam date and time: 01/21/2025 8:15 AM Age: 59 years old Clinical indication: Pain; Leg, lower; Left; Additional info: Lle pain R/O dvt TECHNIQUE: Imaging protocol: Real-time duplex ultrasound of the left extremity with 2-D martínez scale, color Doppler flow and spectral waveform analysis including responses to compression and other maneuvers (when performed) with image documentation. Limited exam focused on the left lower extremity veins. COMPARISON: No relevant prior studies available. FINDINGS: Left deep veins: Unremarkable. The common femoral, femoral, proximal profunda femoral and popliteal veins are patent without thrombus. Normal Doppler waveforms. Normal compressibility and/or augmentation response. Superficial veins: Greater saphenous vein at the saphenofemoral junction is patent without thrombus. Soft tissues: Unremarkable. US/[place] [id number] IMPRESSION: No evidence of deep vein thrombosis.
--- NOTE | 2025-01-21 07:41 | W.ED.EXTPRO ---
HPI - Extremity Problem General: Chief complaint: Extremity Problem,Nontraumatic Stated complaint: Lt leg swollen Time Seen by Provider: 01/21/25 07:24 History of Present Illness: 59-year-old female past medical history significant for hypertension, diabetes, peripheral neuropathy, presenting with approximately 6-week history now of left lower extremity area of redness pain and swelling, status post now 3 courses of antibiotics doxycycline and then Keflex and now a second course of doxycycline which she has 2 doses left of without any improvement, she has a pending appointment with a vascular surgeon on the , 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 No falls or trauma Related Data Home Medications ?Medication ?Instructions ?Recorded ?Confirmed aspirin 81 mg tablet,delayed 81 mg PO DAILY 08/15/19 01/21/25 release glipizide 10 mg tablet 10 mg PO BID 08/15/19 01/21/25 lisinopril 20 1 tab PO DAILY 08/15/19 01/21/25 mg-hydrochlorothiazide 25 mg tablet (Zestoretic) magnesium 200 mg tablet 200 mg PO DAILY 08/15/19 01/21/25 doxycycline hyclate 100 mg capsule 100 mg PO BID 01/13/25 01/21/25 pioglitazone 15 mg tablet 15 mg PO DAILY 01/21/25 01/21/25 Previous Rx's ?Medication ?Instructions ?Recorded celecoxib 200 mg capsule 200 mg PO BID #30 caps 01/13/25 gabapentin 300 mg capsule 300 mg PO BID #60 caps 01/13/25 prednisone 20 mg tablet 20 mg PO DAILY #7 tabs 01/13/25 sulfamethoxazole 800 1 tab PO BID 10 days #20 tabs 01/21/25 mg-trimethoprim 160 mg tablet (Bactrim DS) triamcinolone acetonide 0.5 % 1 applic topical BID 14 days #15 01/21/25 topical cream grams Allergies Allergy/AdvReac Type Severity Reaction Status Date / Time No Known Allergies Allergy Verified 01/13/25 09:44 PFS ED PFS: Medical History Inflammation of skin and/or subcutaneous tissue Left leg cellulitis Diabetic neuropathy, painful Urinary urgency Diabetes Urinary incontinence Chronic cystitis Surgical History Status post hysterectomy Family History Father , at age 73 Diabetes Social History Smoking and tobacco/nicotine status: tobacco/nicotine user, details unknown Alcohol intake: never Marital status: Current occupational status: employed Physical Exam Narrative: EXAM NARRATIVE: Gen: A&Ox4, no acute distress, nontoxic appearing HEENT: Normocephalic, atraumatic, no scleral icterus, external ears normal, moist mucous membranes Neck: Supple, full range of motion, no observable masses Lungs: No Respiratory distress, Lungs clear to auscultation bilaterally no rales, rhonchi, wheezing CV: Regular rate and rhythm, no murmur, trace pitting edema to the bilateral lower extremities Abdomen: Soft, nondistended, nontender to palpation MSK: No joint swelling, FROM all 4 extremities Skin: Left lower extremity has a somewhat focal area of redness with mild warmth and significant tenderness to palpation to the anteromedial aspect of the left lower leg, no palpable crepitus, no purulence, no open skin lesions, there is tenderness to palpation throughout both of the lower legs although more tender at the site of redness, palpable DP and PT pulses on the affected leg Neuro: Alert and oriented, no slurred speech, sensation and strength grossly intact all 4 extremities Psych: Appropriate for situation. Course Reevaluation(s): Reevaluation #1: Results of workup with normal blood work, normal inflammatory markers, ultrasound with no abscess or DVT, possible cellulitis failing outpatient antibiotics however given lack of inflammatory marker elevation lack of progression over the last 6 weeks I am also concern for more of a stasis dermatitis or possible vasculitis type presentation. Will start a topical steroid, I discussed the risks and benefits of a different course of antibiotics with the patient and given that she is already on probiotic she has had no deleterious side effects from the course of antibiotics she has previously been on, she would like to start a new antibiotic and will prescribe Bactrim to see if this helps, recommend she follows up with her vascular surgeon that she has an appointment with in 2 weeks, I also will give her a referral to outpatient dermatology for further evaluation. I did discuss with her extensively return precautions to include worsening pain swelling or redness to the area, extension of the symptoms up the leg, fevers, chest pain or shortness of breath. Time: 08:48 Vital Signs: Vital signs: Vital Signs Temperature 98.1 F 01/21/25 07:31 Pulse Rate 85 01/21/25 07:31 Respiratory Rate 18 01/21/25 07:31 Blood Pressure 139/68 01/21/25 08:18 Pulse Oximetry 97 01/21/25 08:18 Oxygen Delivery Me thod Room Air 01/21/25 08:18 MDM - Extremity (Nontraumatic) Medical Decision Making 59-year-old female history hypertension diabetes and peripheral neuropathy presenting to the emergency department with persistent left leg pain swelling and focal redness x 6 weeks, status post now 3 rounds of antibiotics without improvement, no systemic signs of sepsis or progression of the redness in recent days, sent in for possible DVT rule out. At this time I have a relatively low suspicion for DVT although cannot exclude it without ultrasound imaging which will be ordered, her lack of significant progression or improvement on multiple rounds of antibiotics would make a diagnosis of cellulitis less likely in my opinion, differential would also include stasis dermatitis, vasculitis, chronic stasis less likely given focal nature of the redness, plan for ultrasound of the vasculature of the leg to rule out DVT, soft tissue ultrasound to assess for significant abscess formation, labs to assess inflammatory markers, CRP was reportedly negative about 1 week ago with a creatinine of 1.4 and a white count of 3.9 per outpatient labs patient was able to show me, reassess for disposition. Lab Data Labs with no leukocytosis, no thrombocytosis, negative ESR CRP, normal kidney function 01/21/25 07:51 01/21/25 07:51 Radiology Impressions Soft Tissue Ultrasound 01/21/25 07:40 IMPRESSION: Findings suggestive of edema with possible cellulitis. No loculated collections to suggest abscess. Venous Duplex 01/21/25 07:40 IMPRESSION: No evidence of deep vein thrombosis. Laboratory Results WBC 5.53 10^3/uL (3.29-11.43) 01/21/25 07:51 RBC 4.49 10^6/uL (3.85-5.65) 01/21/25 07:51 Hgb 13.20 g/dL (11.27-16.99) 01/21/25 07:51 Hct 40.1 % (36-47) 01/21/25 07:51 MCV 89.3 fl (85-98) 01/21/25 07:51 MCH 29.4 pg (27-33) 01/21/25 07:51 MCHC 32.9 g/dL (30-55) 01/21/25 07:51 RDW 13.9 % (12.1-15.1) 01/21/25 07:51 Plt Count 162 10^3/cmm (157-399) 01/21/25 07:51 MPV 10.7 fL (7.4-10.4) H 01/21/25 07:51 Neut % (Auto) 63.8 % 01/21/25 07:51 Lymph % (Auto) 21.2 % 01/21/25 07:51 Bosque % (Auto) 10.1 % 01/21/25 07:51 Eos % (Auto) 4.0 % 01/21/25 07:51 Baso % (Auto) 0.5 % 01/21/25 07:51 Neut # (Auto) 3.53 10^3/uL (1.8-7.7) 01/21/25 07:51 Lymph # (Auto) 1.2 10^3/uL (0.8-4.8) 01/21/25 07:51 Bosque # (Auto) 0.6 10^3/uL (0.2-0.9) 01/21/25 07:51 Eos # (Auto) 0.2 10^3/uL (0.0-0.8) 01/21/25 07:51 Baso # (Auto) 0.0 10^3/uL (0.0-0.1) 01/21/25 07:51 Nucleated RBC % (auto) 0 % 01/21/25 07:51 Nucleated RBCs # 0.0 /100WBC 01/21/25 07:51 ESR 7 mm/hr (0-15) 01/21/25 07:51 Sodium 140 mmol/L (136-145) 01/21/25 07:51 Potassium 4.0 mmol/L (3.5-5.1) 01/21/25 07:51 Chloride 104 mmol/L (98-107) 01/21/25 07:51 Carbon Dioxide 25 mmol/L (22-29) 01/21/25 07:51 Anion Gap 15.0 (5-19) 01/21/25 07:51 BUN 21 mg/dL (8-23) 01/21/25 07:51 Creatinine 0.8 mg/dL (0.5-0.9) 01/21/25 07:51 GFR Calculation 73.2 mL/min (90-130) L 01/21/25 07:51 Glucose 107 mg/dL (65-115) 01/21/25 07:51 Calculated Osmolality 293 mOsm/kg (285-295) 01/21/25 07:51 Calcium 9.0 mg/dL (8.5-10.5) 01/21/25 07:51 C-Reactive Protein 3.0 mg/L (0.0-4.9) 01/21/25 07:51 All radiology interpretation(s) finalized by discharge ED provider radiology interpretation(s): Ultrasound soft tissue no abscess, ultrasound left lower extremity venous duplex no DVT Discharge Plan Discharge Patient Disposition: Home Clinical Impression: Leg wound, left Condition: Stable Prescriptions: New triamcinolone acetonide 0.5 % cream 1 applic topical BID 14 Days Qty: 15 0RF sulfamethoxazole-trimethoprim [Bactrim DS] 800-160 mg tablet 1 tab PO BID 10 Days Qty: 20 0RF No Action lisinopril-hydrochlorothiazide [Zestoretic] 20-25 mg tablet 1 tab PO DAILY magnesium 200 mg tablet 200 mg PO DAILY aspirin 81 mg tablet,delayed release (DR/EC) 81 mg PO DAILY glipizide 10 mg tablet 10 mg PO BID doxycycline hyclate 100 mg capsule 100 mg PO BID celecoxib 200 mg capsule 200 mg PO BID Qty: 30 0RF prednisone 20 mg tablet 20 mg PO DAILY Qty: 7 0RF gabapentin 300 mg capsule 300 mg PO BID Qty: 60 0RF pioglitazone 15 mg tablet 15 mg PO DAILY Discharge Orders: Discharge ED (Routine); Ordered 01/21/25 Ordered By: Robert Chaney Referrals: Cally Mcmansu FNP [Primary Care Provider, Unknown] Patient Instructions: Patient Portal & Leonardo Instructions, Acute Rash (ED), Cellulitis (ED) Print Language: Maori Coding Level of Care Code ED Ladle Patcher for Sethg Juma
[2025-01-21 07:55] LABS: Hematocrit 40.1 % (36-47); Hemoglobin 13.20 g/dL (11.27-16.99); Mean Corpuscular HGB Conc 32.9 g/dL (30-55); Mean Corpuscular Hemoglobin 29.4 pg (27-33); Mean Corpuscular Volume 89.3 fl (85-98); Nucleated Red Blood Cells % 0 %; Platelet Count 162 10^3/cmm (157-399); Red Blood Count 4.49 10^6/uL (3.85-5.65); White Blood Count 5.53 10^3/uL (3.29-11.43)
[2025-01-21 08:15] LABS: Anion Gap 15.0 (5-19); Blood Urea Nitrogen 21 mg/dL (8-23); Calcium 9.0 mg/dL (8.5-10.5); Carbon Dioxide 25 mmol/L (22-29); Chloride 104 mmol/L (98-107); Creatinine Clr Calc Pharmacy 96.4944; Glucose 107 mg/dL (65-115); Osmolality Calculated 293 mOsm/kg (285-295); Potassium 4.0 mmol/L (3.5-5.1); Sodium 140 mmol/L (136-145)
[2025-01-21 08:18] VITALS: BP 139/68; O2SAT 97
[2025-01-21 09:07] VITALS: BP 134/79; PULSE 59; O2SAT 95
[2025-01-21] MEDS: sulfamethoxazole-trimeth DS 160-800 mg Tablet 1 TAB PO (09:35)
--- NOTE | 2025-01-23 07:20 | DCPLANNER ---
messaged dermatology for er f/u
== END 2025-01-21 09:11 | disposition home or self-care (01) ==
PROVIDERS: Emergency Provider Student in an Organized Health Care Education/Training Program; PCP Nurse Practitioner Family
DX: S81.802A Unspecified open wound, left lower leg, initial encounter (principal); Z79.82 Long term (current) use of aspirin; E11.40 Type 2 diabetes mellitus with diabetic neuropathy, unspecified; I10 Essential (primary) hypertension; X58.XXXA Exposure to other specified factors, initial encounter
CPT/HCPCS: 36415; 76882; 80048; 85025; 85651; 86140; 93971; 99284; J9999